=== PATIENT | female | born 1955 | race Caucasian/White ===

== ENCOUNTER 2017-07-23 01:23 | Inpatient (IN) | payer OTHER ==
[~2017-07-23] VITALS: Ht 166.4 cm; Wt 112.7 kg
[~2017-07-23 01:23] MED LIST: ADVAIR 250-501 EACH INH; CYMBALTA60 M1 PO; DYAZIDE 37.5-21 EACH PO; FOSAMAX70 M1 PO; LIOTHYRONINE SO5 MC1 PO; OMEPRAZOLE20 M2 PO; SYNTHROID150 MCG PO; TENORMIN25 M1 PO; VITAMIN D250000 UNIT PO
[2017-07-23] MEDS ORDERED: VITAMIN D350000 UNIT PO (11:04)
--- NOTE | 2017-07-23 14:29 | Admission Core Measures ---
Acute Coronary Syndrome (CM) ACS Core Measures Acute Coronary Syndrome Diagnosis No Congestive Heart Failure (NEW) CHF Core Measures Congestive Heart Failure Diagnosis No Cerebrovascular Accident (NEW) CVA Core Measures CVA/TIA Diagnosis No Venous Thromboembolism VTE Core Darius (View Protocol) VTE Risk Factors Age>40 No Mechanical VTE Prophylaxis d/t N/A MechProphylax Ordered No VTE Pharm Prophylaxis d/t NA PharmProphylax ordered Problem List As ranked by this Provider includes Assessment & Plan 1. History of sleeve gastrectomy 2. Morbid obesity HOME MEDS Home Med List Alendronate Sodium (Fosamax) 70 MG TABLET 1 TAB PO QW OSTEOPOROSIS (Reported) Atenolol (Tenormin) 25 MG TABLET 2 TAB PO DAILY HEART HEALTH (Reported) Cholecalciferol (Vitamin D3) (Vitamin D3) 50,000 UNIT CAPSULE 1 TAB PO DAILY SUPP (Reported) Duloxetine HCl (Cymbalta) 60 MG CAPSULE.DR 1 CAP PO DAILY MOOD (Reported) Fluticasone/Salmeterol (Advair 250-50 Diskus) 250 MCG-50 MCG/DOSE BLST.W.DEV 1 PUF INH BID COPD (Reported) Levothyroxine Sodium (Synthroid) 150 MCG TABLET 1 TAB PO DAILY HORMONE ( Reported) Liothyronine Sodium 5 MCG TABLET 1 TAB PO DAILY HORMONE (Reported) Omeprazole 20 MG CAPSULE.DR 1 CAP PO DAILY GERD (Reported) Triamterene/Hydrochlorothiazid (Dyazide 37.5-25 Capsule) 37.5 MG-25 MG CAPSULE 1 CAP PO DAILY CARDIAC (Reported)
--- NOTE | 2017-07-23 14:34 | Operative Report ---
Operative/Inv Procedure Report Surgery Date: 07/23/17 Name of Procedure: Laparoscopic vertical sleeve gastrectomy and hiatal hernia repair Pre-Operative Diagnosis: Orbit obesity Post-Operative Diagnosis: Same Estimated Blood Loss: less than 50ml Surgeon/Civil Structural Designer: Vianey CROUCH,Ang George PA-C Anesthesia: general endotracheal tube, block IV Fluids: LR Implants: none Urine Output: na Drains: none Specimens: portion of stomach Microbiology: na Tourniquet: na Complications: none Condition: stable Operative Indication: see admission HP Operative/Procedure Note Note: After informed consent and proper identification the patient was taken to the operating room and placed on the operating table in the supine position. Venodyne stockings were applied. She underwent a general endotracheal anesthetic. The abdomen was prepped and draped in normal sterile fashion after anesthesia applied a Yelena block. Using a 5 mm Covidian and Visiport and 0 5 mm laparoscope we entered the abdominal cavity without difficulty and left upper quadrant we insufflated with 14 mm CO2 pressure. We had excellent visualization and under direct visualization we inserted 25 mm trochars in each of the subcostal margins and a 15 mm trocar in the right midabdomen we changed the 5 mm trocar in the left upper quadrant that we entered to to a 12 mm trocar using an angled 45 Stortz scope . We have anesthesia decompress the stomach with an orogastric tube. Megan liver retractors placed in the upper midline to retract the left lobe liver. We could see there is a small hiatal hernia. We began dissection by opening up the gastrohepatic ligament and then dissecting along the right winston using the harmonic scalpel and blunt dissection up over the top of the winston to the left side we pulled the stomach medially we took down the sac attachments around the esophagus to the left winston. We then divided the vascular attachments opposite the angularis 6 cm from the pylorus along the greater curvature using a Sonicision Scalpel all the way up to the angle of His. We freed up 3 cm of intra-abdominal esophagus without tension. Repaired the winston with 2 2-0 Tycron sutures of [id number] and then a single stitch. Next we had anesthesia remove the orogastric tube in place of 38 Tamazight bougie. Using the bougie as a guide we began to staple we fired a Endo MADSION stapler to black load cartridges 60 cm with seam guard followed by more propyl load cartridges with seam guard to completely transect the remnant stomach from the newly created sleeve remove the bougie removed the Megan liver retractor removed the remnant stomach and a 15 Endo Catch bag was no active bleeding removed all trochars sponge and instrument counts were correct. We closed the skin incisions with 4-0 Monocryl subcuticular stitches and dry sterile dressings were placed The patient was extubated and taken the recovery room in stable condition Findings: small hiatal hernia, normal appearing liver
--- NOTE | 2017-07-23 16:07 | Surg Short-stay <48hrs Dis Sum ---
Visit Information Visit Dates Admission Date: 07/23/17 Discharge Date: 07/24/17 Surgical Short Stay DC Summary Admission Diagnosis: Morbid obesity, hiatal hernia Final Diagnosis: Same as above, s/p laparoscopic sleeve gastrectomy hiatal hernia repair Procedure(s): laparoscopic sleeve gastrectomy hiatal hernia repair Summary/Significant Findings: Patient underwent the above mentioned procedure without complications. Postoperatively she did well, she was given preoperative antibiotics, placed on IV fluids, pain medication was provided as needed, she had an upper GI series which was negative. Her diet was advanced, per bariatric protocol, she was placed on heparin subcutaneous for DVT prophylaxis. Her laboratory values were acceptable and her pain was controlled and she was discharged home in a stable condition without any immediate postoperative complications. Condition at Discharge: Good Discharge Disposition: home or self care Discharge instructions provided to patient/family: Yes Post discharge follow-up plan: one week follow up with Copies to: Alejandro CROUCH,Yohan Ennis
[2017-07-23] MEDS ORDERED: LOVENOX40 MG/0.1 SC (16:09)
[2017-07-23] MEDS ORDERED: HYCET 7.5 MG-3473 ML PO (16:09)
--- NOTE | 2017-07-23 16:13 | Patient Discharge Instructions ---
Discharge Instructions General Discharge Information You were seen/treated for: Morbid obesity and hiatal hernia Laparoscopic sleeve gastrectomy and repair of hiatal hernia You had these procedures: See above Watch for these problems: Worsening abdominal pain, nausea, vomiting, fever Do not soak the wound: Yes Daily wet to dry dressings: No No bath, but you may shower: Yes Other wound care: Change the dressing after 3 days, replace when wet, you may use Band-Aids Special Instructions: Take pain medication as needed, avoid lifting over 10 pounds Drink plenty of fluids Call the office with any concerns Bariatric diet Diet Continue normal diet: No Recommended Diet: Bariatric Activity Full Activity/No Limits: No Activity Self Limited: Yes Pounds, do NOT lift more than: 10 Acute Coronary Syndrome Inclusion Criteria At DC or during hospital stay patient has or had the following: ACS DIAGNOSIS No Discharge Core Measures Meds if any: Prescribed or Continued at Discharge Meds if any: NOT Prescribed or Continued at Discharge Congestive Heart Failure Inclusion Criteria At DC or during hospital stay patient has or had the following: CHF DIAGNOSIS No Discharge Core Measures Meds if any: Prescribed or Continued at Discharge Meds if any: NOT Prescribed or Continued at Discharge Cerebrovascular accident Inclusion Criteria At DC or during hospital stay patient has or had the following: CVA/TIA Diagnosis No Discharge Core Measures Meds if any: Prescribed or Continued at Discharge Meds if any: NOT Prescribed or Continued at Discharge Venous thromboembolism Inclusion Criteria VTE Diagnosis No VTE Type NONE VTE Confirmed by (Test) NONE Discharge Core Measures - Per Current guidelines, there needs to be overlap - treatment for the first 5 days of Warfarin therapy. - If discharged on Warfarin prior to 5 days of - overlap therapy, the patient will need to be - assessed for post discharge needs including - *Post discharge parental anticoagulation - *Warfarin and/or parental anticoagulation education - *Follow up date to check INR post discharge At least 5 days overlap therapy as Inpatient No Meds if any: Prescribed or Continued at Discharge Note: Overlap Therapy is Warfarin and Anticoagulant Meds if any: NOT Prescribed or Continued at Discharge
--- NOTE | 2017-07-23 16:26 | PN- Bariatrics ---
Subjective Subjective: Post subjective: Patient seen postoperatively, she has no complaints, no nausea no vomiting. She has minimal pain in the epigastric region, otherwise she is comfortable and in good spirits Objective Vital Signs and I&Os Vital signs stable, afebrile Physical Exam: Well-developed well-nourished no apparent distress. HEENT: Atraumatic, extraocular motion intact Neck: Supple, no lymphadenopathy Respiratory: No respiratory distress Abdomen: Soft, minimal tenderness in the epigastric region, nondistended, active bowel sounds, dressings clean dry and intact Extremities: No edema, no calf pain Neuro: Alert and oriented x3 Psych: Mood affect normal, normal memory normal judgment. Skin: Warm and dry, no rash on exposed skin Assessment/Plan Assessment/Plan Postop day #0 status post laparoscopic sleeve gastrectomy and repair of hiatal hernia Bariatric stage I diet. Nothing by mouth after midnight for upper GI study. IV fluids. Continue omeprazole. Heparin for DVT prophylaxis, Lovenox as outpatient. Out of bed, ad ernesto. activity. Continue atenolol, hold other antihypertensives Pain medication as needed As needed antiemetics Core Measures Venous Thromboembolism VTE Risk Factors Age>40 No Mechanical VTE Prophylaxis d/t N/A MechProphylax Ordered No VTE Pharm Prophylaxis d/t NA PharmProphylax ordered
[2017-07-23 20:26] VITALS: BP 123/66
[2017-07-23 23:47] VITALS: BP 93/51
[2017-07-23 23:51] VITALS: BP 98/52
[2017-07-24 03:54] VITALS: BP 100/63
--- NOTE | 2017-07-24 07:24 | PN- Bariatrics ---
See Addendum Subjective Subjective: Reports a headache. Slight epigastric discomfort. No nausea. Passing flatus. No bm yet. Out of bed to bathroom. No dizziness. No shortness of breath. No chest pains. Voiding well. Atenolol held due to asymptomatic bradycardia overnight. Objective Vital Signs and I&Os Vital Signs Date Time Temp Pulse Resp B/P B/P Pulse O2 O2 Flow FiO2 Mean Ox Delivery Rate 07/24 0548 53 07/24 0354 97.5 47 20 100/63 93 Room Air 07/23 2351 98/52 07/23 2347 97.8 54 20 93/51 93 Room Air 07/23 2026 97.5 55 18 123/66 93 Room Air Intake & Output 07/24 0800 07/24 0000 07/23 1600 07/23 0800 07/23 0000 07/22 1600 Intake Total 560 815 Output Total 350 250 Balance 210 565 Intake, IV 500 575 Intake, Oral 60 240 Number 0 Bowel Movements Output, Urine 350 250 Patient 249 lb 245 lb Weight Weight Reported by Patient Measurement Method Physical Exam: General - alert & oriented x 3. comfortable. no acute distress. Lungs - clear bilaterally. no w/r/r. Cardiac - s1s2. reg. Abdomen - soft. dressings c/d/i. vesta-incisional tenderness. no drains. Extremities - warm bilaterally. no c/c/e. calves soft and nontender b/l. Current Medications: Current Medications Sig/Monica Start time Last Medication Dose Route Stop Time Status Admin Acetaminophen 1,000 MG ONCE ONE 07/24 0730 UNVr N/A 1 UNIT IV 07/24 0744 Acetaminophen 1,000 MG .STK-MED ONE 07/23 1223 DC IV 07/23 1224 Acetaminophen 1,000 MG .STK-MED ONE 07/23 0732 DC IV 07/23 0733 Atenolol 50 MG DAILY 07/24 1000 CAN PO Budesonide/ 2 PUF BID 07/23 2200 AC 07/23 Formoterol Fumarate INH 2142 Cefazolin Sodium 2 GM Q8H 07/24 0200 DC 07/24 N/A 1 UNIT IV 07/24 0229 0152 Cefazolin Sodium 2 GM IQ8 07/23 1600 DC 07/23 N/A 1 UNIT IV 07/24 0029 1800 Dexamethasone 0 .STK-MED ONE 07/23 1112 DC .ROUTE Dexamethasone 10 MG ONCE 07/23 0000 DC Dextrose/Water 50 ML IV 07/23 2359 Duloxetine HCl 60 MG DAILY 07/24 1000 AC PO Fentanyl Citrate 100 MCG .STK-MED ONE 07/23 1223 DC IM 07/23 1224 Fentanyl Citrate 250 MCG .STK-MED ONE 07/23 1222 DC IM 07/23 1223 Heparin Sodium 5,000 UNIT Q8 07/23 2200 AC 07/24 (Porcine) SC 0559 Heparin Sodium 5,000 UNIT ONCE 07/23 0000 DC (Porcine) SC 07/23 2359 Hydrocodone Bitart/ 15 ML Q6P PRN 07/23 1700 AC Acetaminophen PO Hydromorphone HCl 1 MG Q4P PRN 07/23 1700 AC IV Ketorolac 30 MG Q6 07/24 1200 UNVr Tromethamine IV Ketorolac 30 MG Q6P PRN 07/23 1700 DC Tromethamine IV Levothyroxine Sodium 0.15 MG DAILY AC 07/24 0700 AC 07/24 PO 0559 Liothyronine Sodium 5 MCG DAILY 07/23 1700 AC 07/23 PO 1936 Meperidine HCl 50 MG .STK-MED ONE 07/23 1427 DC IM 07/23 1428 Midazolam HCl 2 MG .STK-MED ONE 07/23 1223 DC IM 07/23 1224 Morphine Sulfate 4 MG .STK-MED ONE 07/23 1520 DC IM 07/23 1521 Morphine Sulfate 4 MG .STK-MED ONE 07/23 1502 DC IM 07/23 1503 Morphine Sulfate 4 MG .STK-MED ONE 07/23 1427 DC IM 07/23 1428 Morphine Sulfate 10 MG .STK-MED ONE 07/23 1223 DC IV 07/23 1224 Omeprazole 20 MG DAILY AC 07/24 0700 AC 07/24 PO 0559 Ondansetron HCl 4 MG Q6P PRN 07/23 1700 AC IV Potassium Chloride 20 MEQ .[id number] 07/23 1700 AC 07/24 Dextrose/Sodium 1,000 ML IV 0145 Chloride Simethicone 40 MG Q6P PRN 07/23 1700 AC 07/24 PO 0614 Assessment/Plan Assessment/Plan This 61 year old female with hx morbid obesity, htn, gerd, is POD#1 s/p laparoscopic vertical sleeve gastrectomy and hiatal hernia repair currently npo / ivf, awaiting upper gi study try iv tylenol / iv toradol for headache atenolol held due to bradycardia (asymptomatic) protonix iv - gi ppx hep sc - dvt ppx oob/ambulation encouraged home meds ordered f/u labs will d/w Core Measures Venous Thromboembolism VTE Risk Factors Age>40 No Mechanical VTE Prophylaxis d/t N/A MechProphylax Ordered No VTE Pharm Prophylaxis d/t NA PharmProphylax ordered
[2017-07-24 07:56] VITALS: BP 117/67
[2017-07-24 08:18] LABS: ABSOLUTE BASOPHIL COUNT 0 /CUMM (0.0-0.2); ABSOLUTE EOSINOPHIL COUNT 0 /CUMM (0.0-0.7); ABSOLUTE GRANULOCYTE CT 6.8 /CUMM (1.4-6.5); ABSOLUTE LYMPH COUNT 0.5 /CUMM (1.2-3.4); ABSOLUTE MONOCYTE COUNT 0.3 /CUMM (0.10-0.60); BASOPHIL % 0 % (0.0-2.0); EOSINOPHIL % 0 % (0-5); HEMATOCRIT 37.4 % (37-47); MEAN CORPUSCULAR HGB CONC 33.9 G/DL (33.0-37.0); MEAN CORPUSCULAR VOLUME 88.4 FL (81.0-99.0); MEAN PLATELET VOLUME 9.5 FL (7.4-10.4); PLATELET COUNT 234 /CUMM (130-400); RBC DISTRIBUTION WIDTH 14.3 % (11.5-14.5); RED BLOOD CELL CT 4.23 /CUMM (4.20-5.40); WHITE BLOOD CELL COUNT 7.7 /CUMM (4.8-10.8)
[2017-07-24 08:59] LABS: GRANULOCYTE % 88.6 % (42.2-75.2)
--- NOTE | 2017-07-24 12:27 | RADIOLOGY REPORT ---
EXAMINATION: FLUOROSCOPY UPPER GI WITH GASTROGRAFIN WITH KUB CLINICAL INFORMATION: 1 day status post gastric laparoscopic sleeve procedure and hiatal hernia repair. Postoperative evaluation. COMPARISON: None. TECHNIQUE: A preliminary environmental construction engineer view of the abdomen was obtained. A limited Gastrografin upper GI study was performed using 30 ml of Gastroview with the patient in the semiupright and recumbent positions. Multiple (7) spot films and 2 cine fluoroscopy runs were acquired. FINDINGS: The preliminary environmental construction engineer view of the abdomen demonstrates a normal bowel gas pattern without abnormal bowel distention noted. Postoperative changes related to prior lower lumbar spine fusion is noted. Esophageal distensibility is normal. Slight esophageal hypomotility is seen with mild hypotonia in the mid and distal esophagus seen, leading to delayed esophageal emptying. The GE junction is located below the level of the diaphragm. Mild GE reflux into the distal esophagus is seen. The remnant stomach is normal with no abnormal distention or contrast leak seen. There is prompt emptying of contrast into the duodenum, which is unremarkable in appearance. FLUOROSCOPY TIME: 0.58 minutes. IMPRESSION: 1. Slight hypomotility of the esophagus is seen leading to delayed esophageal emptying. 2. No evidence of contrast leak or gastric outlet obstruction is noted. The residual stomach appears normal. 3. Mild GE reflux into the distal esophagus.
[2017-07-24 13:59] VITALS: BP 130/73
== END 2017-07-24 18:05 | DRG 621 ==
LOC: SDA 01:23 → ENRESERV 15:21 → ENTRNSPT 15:51 → EDTRNSPT 16:05 → EDTRNSPTSTS 16:05 → 2NB 16:15 → CMPTRNSPT 16:39 → ENTRNSPT 07-24 17:55 → 2NB 07-24 18:05 → CMPTRNSPT 07-24 19:26
PROVIDERS: Physician Assistant Surgical
PROC: 3E0T3BZ Introduction of Anesthetic Agent into Peripheral Nerves and Plexi, Percutaneous Approach (ICD-10-PCS; principal; 2017-07-23)
PROC: 0BQT4ZZ Repair Diaphragm, Percutaneous Endoscopic Approach (ICD-10-PCS; principal; 2017-07-23)
PROC: 0DB64Z3 Excision of Stomach, Percutaneous Endoscopic Approach, Vertical (ICD-10-PCS; principal; 2017-07-23)
DX: E66.01 Morbid (severe) obesity due to excess calories (principal); E03.9 Hypothyroidism, unspecified; I10 Essential (primary) hypertension; J45.909 Unspecified asthma, uncomplicated; Z88.1 Allergy status to other antibiotic agents; Z68.41 Body mass index [BMI] 40.0-44.9, adult; Z88.8 Allergy status to other drugs, medicaments and biological substances; M79.7 Fibromyalgia; J44.9 Chronic obstructive pulmonary disease, unspecified; Z85.820 Personal history of malignant melanoma of skin; R00.1 Bradycardia, unspecified
CPT/HCPCS: 2NBSP; 36592; 74240; J0131; J0690; J1100; J1644; J1885; J2405; J3490; J7042; S5012